=== PATIENT | female | born 1990 | race Caucasian/White ===

== ENCOUNTER 2017-04-05 06:12 | Inpatient (IN) ==
[2017-04-05] MEDS ORDERED: STADOL IV PRN (06:13)
[2017-04-05] MEDS ORDERED: KEFZOL 1 GM/D5W 1 GM/50 ML IVPB IV PRN (06:13)
[2017-04-05] MEDS ORDERED: PITOCIN 30 UNITS/LR 30 UNITS/500 ML IV.SOLN IV SCH (06:13)
[2017-04-05] MEDS ORDERED: PEPCID PO PRN (06:13)
[2017-04-05] MEDS ORDERED: TYLENOL PO PRN (06:13)
[2017-04-05] MEDS ORDERED: PEPCID IV PRN (06:13)
[2017-04-05] MEDS ORDERED: ZOFRAN IV PRN (06:13)
[2017-04-05] MEDS ORDERED: SODIUM CHLORIDE 0.9% INJ SCH (06:15)
[2017-04-05] MEDS: LR 1,000 ML IV SCH ×2 (06:46→12:27)
[2017-04-05 06:54] LABS: MANUAL DIFF NEEDED? NO
[2017-04-05 06:54] LABS: URINE SOURCE VOIDED
[2017-04-05 06:56] LABS: BASO% 0.2 % (0.0-0.8); EOS# 0.05 X1000 (0.0-0.7); EOS% 0.5 % (0.0-10.0); HEMATOCRIT 35.7 % (37.0-47.0); HEMOGLOBIN 12.3 g/dL (12.0-16.0); IMM GRAN# 0.04 X1000 (0.0-0.04); IMM GRAN% 0.4 % (0.0-0.5); LYMPH# 1.48 X1000 (1.2-3.4); LYMPH% 13.6 % (20.5-51.1); MCHC 34.5 g/dL (33-37); MCV 89.9 FL (81-99); MONO# 0.69 X1000 (0.11-0.59); MONO% 6.3 % (1.7-9.3); MPV 9.9 FL (7.4-10.4); PLT 221 X1000 (130-400); RBC 3.97 XMIL (4.2-5.4)
[2017-04-05 06:57] LABS: UR AMPHETAMINES QUAL NONE DETECTED (NONE DETECT); UR BARBITUATES QUAL NONE DETECTED (NONE DETECT); UR BENZODIAZEPIN QUAL NONE DETECTED (NONE DETECT); UR CANNABINOIDS QUAL NONE DETECTED (NONE DETECT); UR COCAINE QUAL NONE DETECTED (NONE DETECT); UR MDMA QUAL NONE DETECTED (NONE DETECT); UR METHADONE QUAL NONE DETECTED (NONE DETECT); UR METHAMPHETAMINE QUAL NONE DETECTED (NONE DETECT); UR OPIATES QUAL NONE DETECTED (NONE DETECT); UR OXYCODONE QUAL NONE DETECTED (NONE DETECT); UR PCP QUAL NONE DETECTED (NONE DETECT); UR TCA QUAL NONE DETECTED (NONE DETECT)
[2017-04-05 06:59] LABS: BILIRUBIN URINE NEGATIVE (NEGATIVE); BLOOD URINE NEGATIVE (NEGATIVE); CLARITY CLEAR (CLEAR); COLOR YELLOW; GLUCOSE URINE NEGATIVE (NEGATIVE); LEUKOCYTES URINE 1+ (NEGATIVE); NITRITE URINE NEGATIVE (NEGATIVE); PROTEIN URINE NEGATIVE (NEGATIVE); SP GRAVITY URINE 1.005; UROBILINOGEN URINE NORMAL
[2017-04-05] MEDS ORDERED: FENTANYL-BUPIV-NS 2 MCG-0.1% 200 ML EPIDURAL PRN (12:18)
[2017-04-05] MEDS ORDERED: BENADRYL PO PRN (14:21)
[2017-04-05] MEDS ORDERED: NORCO-10 PO PRN (14:21)
[2017-04-05] MEDS ORDERED: AMBIEN PO PRN (14:21)
[2017-04-05] MEDS ORDERED: HYDROXYZINE PO PRN (14:21)
[2017-04-05] MEDS ORDERED: PERI MEDS (DERMOPLAST/NUPERCAINAL/TUCKS) MISC PRN (14:21)
[2017-04-05] MEDS ORDERED: PITOCIN 30 UNITS/LR 30 UNITS/500 ML IV.SOLN IV ONE (14:21)
[2017-04-05] MEDS ORDERED: M-M-R II VACCINE SUBQ ONE (14:21)
[2017-04-05] MEDS ORDERED: BENADRYL IV PRN (14:21)
[2017-04-05] MEDS ORDERED: NORCO-5 PO PRN (14:21)
[2017-04-05] MEDS ORDERED: PITOCIN IM PRN (14:21)
[2017-04-05] MEDS ORDERED: CYTOTEC PO PRN (14:21)
[2017-04-05] MEDS ORDERED: MINERAL OIL PO PRN (14:21)
[2017-04-05] MEDS ORDERED: BOOSTRIX VACCINE IM ONE (14:21)
[2017-04-05] MEDS ORDERED: XYLOCAINE-MPF 1% INJ PRN (14:21)
[2017-04-05] MEDS ORDERED: HYDROXYZINE IM PRN (14:21)
[2017-04-05] MEDS ORDERED: PITOCIN 20 UNITS/LR 20 UNITS/1,000 ML IV.SOLN IV SCH (14:21)
--- NOTE | 2017-04-05 14:39 | OPERATIVE NOTE ---
PROCEDURE DATE: 04/05/2017 PREDELIVERY DIAGNOSES: 1. Intrauterine at 39 weeks. 2. History of herpes simplex virus infection. 3. Latex allergy. POSTDELIVERY DIAGNOSES: 1. Intrauterine at 39 weeks. 2. History of herpes simplex virus infection. 3. Latex allergy. 4. Nuchal cord without compression. PROCEDURE: Vaginal delivery. PHYSICIAN: Dr. Gurvinder Sandoval. ANESTHESIA: Epidural with Dr. Banegas. FINDINGS: Viable female , occiput anterior, intact perineum, 7 pounds 13 ounces. Do not have Apgars. Cord was 3 vessels. Placenta delivered spontaneously and intact, and there were no repairable lacerations or tears and no clots or foreign material in the vagina and count was correct, both pre and after procedure. Please refer to Ms. Peterson's records. She was admitted this morning at 2 cm dilatation and started on Pitocin. She was artificially ruptured and made progress throughout the morning transitioning into active labor requiring an epidural. Soon after becoming complete with the pushing, she crowned. Bed was broken down. She was prepped and draped. Continued pushing and she delivered a viable female infant, occiput anterior, over an intact perineum. Nuchal cord x1 was reduced without difficulty and, with continued pushing, she delivered the anterior shoulder followed by the rest of the body with no dystocia. The was placed on mother's abdomen. Cord was doubly clamped and cut and care of was taken over by nursery personnel. End of the cord was inspected and found to have 3 vessels. Then cord blood was obtained. Then gentle traction on the cord resulted in delivery of an intact placenta after approximately 3 minutes. It was inspected and then discarded. Inspection of the vagina and perineum did not reveal any lacerations or tears. There were no clots or foreign material in the vagina. ESTIMATED BLOOD LOSS: 100 mL. DISPOSITION: Expect routine . cc: Gurvinder Sandoval MD
[2017-04-05] MEDS: PERICOLACE PO SCH (22:35)
[2017-04-06] MEDS: MOTRIN PO PRN ×3 (02:52→22:08)
[2017-04-06 06:34] LABS: MANUAL DIFF NEEDED? NO
[2017-04-06 06:38] LABS: BASO% 0.2 % (0.0-0.8); EOS# 0.04 X1000 (0.0-0.7); EOS% 0.4 % (0.0-10.0); HEMATOCRIT 34.1 % (37.0-47.0); HEMOGLOBIN 11.4 g/dL (12.0-16.0); IMM GRAN# 0.06 X1000 (0.0-0.04); IMM GRAN% 0.5 % (0.0-0.5); LYMPH# 1.33 X1000 (1.2-3.4); LYMPH% 11.9 % (20.5-51.1); MCH 30.7 PG (27-31); MCHC 33.4 g/dL (33-37); MCV 91.9 FL (81-99); MONO# 0.73 X1000 (0.11-0.59); MONO% 6.5 % (1.7-9.3); MPV 10.1 FL (7.4-10.4); NEUT% 80.5 % (42.2-75.2); PLT 188 X1000 (130-400); RBC 3.71 XMIL (4.2-5.4)
[2017-04-06] MEDS: PRECARE PO SCH (09:09)
--- NOTE | 2017-04-06 12:51 | PROGRESS NOTE ---
DATE: 04/06/2017 SUBJECTIVE: She is day 1. Ms. Peterson is sitting up in bed bonding with her baby. Her other child is there. She does not appear to be in any distress and states she is doing well. OBJECTIVE: Her vital signs are stable. She is afebrile. She is alert and cooperative. Pertinent exam abdomen is slightly distended. Uterus is firm +2 lower extremity edema. LABORATORY DATA: Hemoglobin 11.4, down from 12.3. ASSESSMENT/PLAN: Expect routine care and discharge in the morning. cc: Gurvinder Sandoval MD
[2017-04-06] MEDS: PERICOLACE PO SCH (22:09)
[2017-04-07 08:22] VITALS: BP 120/69
[2017-04-07] MEDS: PRECARE PO SCH (09:11)
[2017-04-07] MEDS: MOTRIN PO PRN (11:12)
--- NOTE | 2017-04-08 08:56 | DISCHARGE SUMMARY ---
ADMISSION DATE: 04/05/2017 DISCHARGE DATE: 04/07/2017 ADMITTING DIAGNOSIS: Term , for induction. DISCHARGE DIAGNOSIS: Term , for induction. CONDITION: Stable. DIET: As tolerated. ACTIVITY: Routine . MEDICATIONS: [place] 5, Motrin 800. She is to continue vitamins and will make sure she has a stool softeners. She is to follow up in 6 weeks at the office. Please refer to Ms. Peterson's records and delivery note. She was admitted the morning of her delivery and had a successful vaginal delivery and has done well afterwards. Currently is without complaints. Voiding, tolerating p.o., and ambulating. Has bonded well with her baby and desires discharge. PHYSICAL EXAMINATION: Vital Signs: Blood pressure 120/69, pulse 85, respirations 16, temperature 96.4 degrees. General Appearance: She is alert and cooperative, in no distress. Neck: Supple. Lungs: Clear. Heart: Regular sinus rhythm. Abdomen: Distended. Uterus is firm. Extremities: + 2 lower extremity edema. LABORATORY: No new laboratory values. Her post delivery hemoglobin was 11.4. We will discharge with above instructions. cc: Gurvinder Sandoval MD
== END 2017-04-07 13:30 | disposition home or self-care (01) ==
LOC: P.LD 06:12
PROVIDERS: ADMIT Obstetrics & Gynecology; ATTEND Obstetrics & Gynecology